=== PATIENT | female | born 1955 | race Caucasian/White ===

== ENCOUNTER 2020-12-01 20:39 | Emergency (ER) | payer MEDICARE ==
[2020-12-02 01:46] LABS: Basophils # (Auto) 0.1 K/mm3 (0.0-0.1); Basophils % (Auto) 0.9 % (0.0-1.8); Eosinophils # (Auto) 0.2 K/mm3 (0.0-0.4); Eosinophils % (Auto) 2.2 % (0.0-4.3); Hematocrit 39.2 % (30.3-42.9); Hemoglobin 13.5 gm/dl (10.1-14.3); Lymphocytes % (Auto) 39.1 % (13.4-35.0); Mean Corpuscular HGB Conc 34 % (30-34); Mean Corpuscular Volume 90 fl (79-97); Monocytes # (Auto) 0.5 K/mm3 (0.0-0.8); Monocytes % (Auto) 6.6 % (0.0-7.3); Platelet Count 355 K/mm3 (140-440); Red Blood Count 4.36 M/mm3 (3.65-5.03); Red Cell Distribution Width 12.8 % (13.2-15.2)
--- NOTE | 2020-12-02 01:55 | XRay Report ---
CHEST 1 VIEW 12/02/2020 12:48 AM INDICATION / CLINICAL INFORMATION: neck pain, chest pain, elevated BP. COMPARISON: None available. FINDINGS: SUPPORT DEVICES: None. HEART / MEDIASTINUM: No significant abnormality. LUNGS / PLEURA: No significant pulmonary abnormality. No significant pleural effusion. No pneumothora x. ADDITIONAL FINDINGS: No significant additional findings. IMPRESSION: 1. No acute abnormality of the chest. Signer Name: Leno Gutierrez MD Signed: 12/02/2020 1:51 AM Workstation Name: [id number]
[2020-12-02 02:09] LABS: Alanine Aminotransferase 27 units/L (7-56); Albumin 4.5 g/dL (3.9-5); Blood Urea Nitrogen 11 mg/dL (7-17); Calcium 9.5 mg/dL (8.4-10.2); Hemolysis Index 0
[2020-12-02 02:13] LABS: BUN/Creatinine Ratio 22
[2020-12-02] MEDS ORDERED: ASPIRIN 325 MG TAB PO ONE (03:11)
--- NOTE | 2020-12-02 03:14 | Emergency Department Report ---
ED General Adult HPI - General Chief complaint: Headache Stated complaint: HIGH BP/HEADACHE Source: patient Mode of arrival: Ambulatory Limitations: No Limitations - History of Present Illness Initial comments: Patient is a 65-year-old [place] female with no past medical history who presents to the ED with complaint of acute onset persistent posterior neck pain and parietal headache with elevated blood pressure for the last 8 hours intermittently. Patient states that she has been taking Tylenol since the onset of the symptoms but that the headache has persisted and that her blood pressure has continued to be elevated, the last time of which was 161/192. Patient d enies dizziness, syncope, nausea, vomiting, chest pain, shortness of breath, fall, traumatic injury, change in vision, diaphoresis, back pain, numbness and tingling or weakness of upper and lower extremities bilaterally, abdominal pain, dysuria, urinary frequency and urgency or facial numbness and tingling. MD Complaint: Headache, neck pain and elevated blood pressure -: Sudden, hour(s) (8 ) Location: head, neck Radiation: neck, other (Headache with elevated blood pressure) Severity scale (0 -10): 6 Quality: aching, sharp Consistency: constant Improves with: none Worsens with: none Associated Symptoms: denies other symptoms, headaches, other (Neck pain and elevated blood pressure). denies: confusion, chest pain, cough, diaphoresis, fever/chills, loss of appetite, malaise, nausea/vomiting, rash, seizure, shortness of breath, syncope, weakness Treatments Prior to Arrival: NSAID - Related Data Previous Rx's Medication Instructions Recorded Last Taken Type Ibuprofen [Motrin] 400 mg PO Q8H PRN #30 tablet 12/02/20 Unknown Rx Allergies Allergy/AdvReac Type Severity Reaction Status Date / Time jackfruit Allergy Itching Uncoded 12/02/20 02:32 seafoods Allergy Itching Uncoded 12/02/20 02:32 ED Review of Systems ROS: Stated complaint: HIGH BP/HEADACHE Other details as noted in HPI Constitutional: other (Elevated blood pressure). denies: chills, fever Eyes: denies: eye pain, eye discharge, vision change ENT: denies: ear pain, throat pain Respiratory: denies: cough, shortness of breath, wheezing Cardiovascular: denies: chest pain, palpitations Endocrine: no symptoms reported Gastrointestinal: denies: abdominal pain, nausea, vomiting, diarrhea Genitourinary: denies: as per HPI, urgency, dysuria, discharge Musculoskeletal: arthralgia (Posterior neck pain). denies: back pain, joint swelling Skin: denies: rash, lesions Neurological: headache. denies: weakness, paresthesias Psychiatric: denies: anxiety, depression Hematological/Lymphatic: denies: easy bleeding, easy bruising ED Past Medical Hx - Past Medical History Previous Medical History?: No - Surgical History Past Surgical History?: No - Social History Smoking Status: Never Smoker Substance Use Type: None - Medications Home Medications: Home Medications Medication Instructions Recorded Confirmed Last Taken Type Ibuprofen [Motrin] 400 mg PO Q8H PRN #30 tablet 12/02/20 Unknown Rx ED Physical Exam - General Limitations: No Limitations General appearance: alert, in no apparent distress - Head Head exam: Present: atraumatic, normocephalic, normal inspection - Eye Eye exam: Present: normal appearance, PERRL, EOMI Pupils: Present: normal accommodation - ENT ENT exam: Present: normal exam, normal orophraynx, mucous membranes moist, TM's normal bilaterally, normal external ear exam - Neck Neck exam: Present: normal inspection, tenderness (Palpable paraspinal musculoskeletal tenderness), full ROM - Respiratory Respiratory exam: Present: normal lung sounds bilaterally. Absent: respiratory distress, rales, rhonchi, chest wall tenderness, accessory muscle use, decreased breath sounds, prolonged expiratory - Cardiovascular Cardiovascular Exam: Present: regular rate, normal rhythm, normal heart sounds. Absent: systolic murmur, diastolic murmur, rubs, gallop - GI/Abdominal GI/Abdominal exam: Present: soft, normal bowel sounds. Absent: tenderness, guarding, rebound, hyperactive bowel sounds, hypoactive bowel sounds, organomegaly - Extremities Exam Extremities exam: Present: normal inspection, full ROM, normal capillary refill - Back Exam Back exam: Present: normal inspection, full ROM. Absent: tenderness, CVA tenderness (R), CVA tenderness (L), muscle spasm, paraspinal tenderness - Neurological Exam Neurological exam: Present: alert, oriented X3, CN II-XII intact, normal gait, reflexes normal - Psychiatric Psychiatric exam: Present: normal affect, normal mood, anxious - Skin Skin exam: Present: warm, dry, intact, normal color. Absent: rash ED Course Vital Signs 12/01/20 12/02/20 12/02/20 22:03 01:21 01:30 Temperature 98.3 F Pulse Rate 81 79 77 Respiratory 18 18 17 Rate Blood Pressure 154/81 Blood Pressure [Right] O2 Sat by Pulse 100 100 100 Oximetry 12/02/20 12/02/20 12/02/20 01:46 01:59 02:00 Temperature Pulse Rate 76 75 75 Respiratory 16 15 18 Rate Blood Pressure 135/73 Blood Pressure 135/73 [Right] O2 Sat by Pulse 100 99 99 Oximetry 12/02/20 12/02/20 12/02/20 02:16 02:30 02:47 Temperature Pulse Rate 72 85 91 H Respiratory 16 24 Rate Blood Pressure 144/67 144/67 144/67 Blood Pressure [Right] O2 Sat by Pulse 100 100 Oximetry 12/02/20 12/02/20 12/02/20 03:00 03:16 03:30 Temperature Pulse Rate 74 76 69 Respiratory 20 13 17 Rate Blood Pressure 156/80 149/69 128/75 Blood Pressure [Right] O2 Sat by Pulse 100 98 100 Oximetry 12/02/20 12/02/20 03:46 04:00 Temperature Pulse Rate 75 72 Respiratory 15 17 Rate Blood Pressure 152/80 145/75 Blood Pressure [Right] O2 Sat by Pulse 97 98 Oximetry ED Medical Decision Making - Lab Data Result diagrams: 12/02/20 01:26 12/02/20 01:26 - Radiology Data Radiology results: report reviewed, image reviewed [address] [address] XRay Report Signed Patient: KENNETH RAYO MR#: [id number] : 1955 Acct:[id number] Age/Sex: 65 / F ADM Date: 12/01/20 Loc: ED Attending Dr: Ordering Physician: ERROL LAL Date of Service: 12/02/20 Procedure(s): XR chest 1V ap Accession Number(s): [id number] cc: ERROL LAL Fluoro Time In Minutes: CHEST 1 VIEW 12/02/2020 12:48 AM INDICATION / CLINICAL INFORMATION: neck pain, chest pain, elevated BP. COMPARISON: None available. FINDINGS: SUPPORT DEVICES: None. HEART / MEDIASTINUM: No significant abnormality. LUNGS / PLEURA: No significant pulmonary abnormality. No significant pleural effusion. No pneumothorax. ADDITIONAL FINDINGS: No significant additional findings. IMPRESSION: 1. No acute abnormality of the chest. Signer Name: Leno Gutierrez MD Signed: 12/02/2020 1:51 AM Workstation Name: [id number] Transcribed By: PAOLA Dictated By: Leno Gutierrez MD Electronically Authenticated By: Leno Gutierrez MD Signed Date/Time: 12/02/20150 DD/ 0 TD/TT: - Medical Decision Making This is a 65-year-old [place] female with no past medical history who presents to the ED with complaint of acute onset persistent posterior neck pain and parietal headache with elevated blood pressure for the last 8 hours intermittently. Patient states that she has been taking Tylenol since the onset of the symptoms but that the headache has persisted and that her blood pressure has continued to be elevated, the last time of which was 161/192. In the ED, patient is alert and oriented x3 and is not in any distress. The vital signs initially showed elevated blood pressure but subsequent repeat of vital signs showed was unremarkable with normal vital signs. EKG shows normal sinus rhythm with a ventricular rate of 82 bpm. Chest x-ray shows no acute cardiopulmonary abnormalities or pneumonitis. Lab test results were reviewed and are all nonactionable including initial and repeat 3-hour troponin levels. Patient has no risk factors at this time and is PERC negative per Wells criteria. Patient symptoms are likely musculoskeletal as physical exam showed reproducible paraspinal musculoskeletal tenderness. On reevaluation, patient felt better, patient is hemodynamically stable, and patient was discharged home on pain medication and advised to follow-up with her primary care physician in 5 to 7 days for reevaluation or return to the ED immediately if symptoms get worse. - Differential Diagnosis ACS; cervical sprain; tension headache; osteoarthritis; anxiety Critical care attestation.: If time is entered above; I have spent that time in minutes in the direct care of this critically ill patient, excluding procedure time. ED Disposition Clinical Impression: Cervical paraspinous muscle spasm Acute tension headache Qualifiers: Intractability: not intractable Qualified Code(s): G44.209 - Tension-type headache, unspecified, not intractable Disposition: DC-01 TO HOME OR SELFCARE Is pt being admited?: No Does the pt Need Aspirin: No Condition: Stable Instructions: Muscle Cramps and Spasms, [id number], Cervicogenic Headache, Hypertension, Adult, [id number], Managing Your Hypertension, Hypertension (ED) Additional Instructions: All lab test results are reviewed and are all nonactionable. The EKG shows normal sinus rhythm with no acute ST or T wave abnormalities. Chest x-ray shows no acute cardiopulmonary abnormalities or pneumonitis. Therefore your neck pain is likely due to muscle spasm of your neck Resulting in persistent headache. Therefore take medications as advised, drink plenty of fluids and follow-up with your primary care physician in 5 to 7 days for reevaluation. Return to the ED immediately if symptoms get worse. Prescriptions: Ibuprofen [Motrin] 400 mg PO Q8H PRN #30 tablet PRN Reason: Pain , Severe (7-10) Referrals: [facility] [Provider Group] - 3-5 Days Time of Disposition: 03:14 Print Language: OCCITAN
[2020-12-02 05:38] VITALS: BP 134/73
--- NOTE | 2020-12-03 14:25 | Electrocardiograph Report ---
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
== END 2020-12-02 05:30 | disposition home or self-care (01) ==
LOC: ED 20:39
DX: G44.209 Tension-type headache, unspecified, not intractable (principal); M62.838 Other muscle spasm; Z79.899 Other long term (current) drug therapy; Z91.013 Allergy to seafood; Z91.018 Allergy to other foods
CPT/HCPCS: 36415; 71045; 80053; 84484; 85025; 93005